=== PATIENT | male | born 1980 | race African-American/Black ===

== ENCOUNTER 2016-06-28 15:59 | Emergency (ER) | payer OTHER ==
--- NOTE | ~2016-06-28 | CR170 ---
[facility] A Service of [facility] & [facility] RADIOLOGY TEXT RESULTS PATIENT: DANIEL BHAKTA LOCATION: CFTX : 84 UNIT #: [id number] AGE: [address]: Tamiko Duran APRN SEX: M ORDER DR: [id number] [facility] [address] [place], [place] [address] [id number] MR#: [id number] Acc #: [id number] NAME: DANIEL BHAKTA : 1980 SEX: M STUDY DATE/TIME: 06/28/2016 16:03 UNIT: [facility] ROOM: STUDY DESCRIPTION: CR Knee 2 Views Rt Attending Physician: Tamiko Duran A.P.R.N. Ordering Physician: Royce Sylvester M.D. [facility] Care Phys[facility] This report is preliminary unless electronic signature is present EXAM 2 view right knee. HISTORY Knee pain while running. DATE OF EXAM 06/28/2016 FINDINGS 2 views of the right knee demonstrate no fracture or dislocation. No arthritic inflammatory change. No joint effusion. Patient apparently was unable to fully extend knee. No loose body. IMPRESSION Negative right knee. Dictated by... Klaus Pineda M.D. THIS IS AN ELECTRONICALLY VERIFIED REPORT Klaus Pineda M.D. at 07/03/2016 1:20 PM Shi TD: 06/28/2016 18:26 JOB #: [id number] MEDICAL IMAGING REPORT Page 1 of 1 COPY
== END 2016-06-28 17:08 | disposition home or self-care (01) ==
LOC: CFTX 15:59
DX: S86.911A Strain of unspecified muscle(s) and tendon(s) at lower leg level, right leg, initial encounter (principal); F17.210 Nicotine dependence, cigarettes, uncomplicated; Z98.890 Other specified postprocedural states; X58.XXXA Exposure to other specified factors, initial encounter; Y92.9 Unspecified place or not applicable
CPT/HCPCS: 29530; 73560; 99283